=== PATIENT | female | born 1980 | race Caucasian/White ===

== ENCOUNTER 2017-01-26 18:12 | Emergency (ER) | payer MEDICAID, OTHER ==
[~2017-01-26] VITALS: Ht 157.5 cm; Wt 70.0 kg
[~2017-01-26 18:12] MED LIST: EFFEXOR
[2017-01-26 18:15] VITALS: Ht 157.5 cm; Wt 70.0 kg
[2017-01-26] MEDS ORDERED: HYDROCODONE/APAP (5/325) TAB PO ONE (21:00)
[2017-01-26 21:18] LABS: ADD UMIC YES; UR AMORPHOUS CRYSTAL FEW /HPF (NONE SEEN); UR ASCORBIC ACID NEGATIVE (NEGATIVE); UR BILIRUBIN (Dip) NEGATIVE (NEGATIVE); UR BLOOD (Dip) NEGATIVE (NEGATIVE); UR CLARITY CLOUDY (CLEAR); UR COLOR YELLOW (YELLOW); UR GLUCOSE (Dip) NEGATIVE (NEGATIVE); UR KETONES (Dip) NEGATIVE (NEGATIVE); UR LEUKOCYTE ESTERASE (Dip) NEGATIVE Leu/ul (NEGATIVE); UR NITRITE (Dip) NEGATIVE (NEGATIVE); UR RBC 1 /HPF (0-5); UR SPECIFIC GRAVITY (Dip) 1.009 (1.003-1.030); UR TOTAL PROTEIN (Dip) NEGATIVE (NEGATIVE); UR UROBILINOGEN (Dip) 1+ mg/dL (NEGATIVE)
--- NOTE | 2017-01-26 21:22 | RADRPT ---
PROCEDURE: CT cervical spine without contrast CLINICAL INDICATION: Trauma. Neck pain. TECHNIQUE: CT scan of the cervical spine was [facility] No IV contrast was administered. Coronal and sagittal reformatted images were obtained from th e axial source images. Images were reviewed on a high-resolution PACS workstation. One or more the f ollowing does reduction techniques were utilized: Automated exposure control, adjustment of the mA/ or kV according to patient's size, or use of iterative reconstruction technique. Exam CTDI = 16.83 m Gy and the DLP = 314.2 mGy-cm. COMPARISON: None available. FINDINGS: There is straightening of the alignment of the cervical spine with loss of the normal cervical lordo sis. Alignment remains intact. No acute fracture or dislocation is seen. The vertebral body heigh ts and disk spaces are preserved. No significant spinal canal or foraminal stenosis is noted. No ma ss, hematoma, or other soft tissue abnormality is seen. There is 1.5 cm hypodense nodule in the right thyroid lobe. There is 3 mm nodular density in the right lung apex. IMPRESSION: 1. Straightening of normal cervical lordosis. 2. No acute fracture or traumatic subluxation. 3. 1.5 cm hypodense nodule in the right thyroid lobe. Consider correlation with thyroid ultrasound. 4. 3 mm nodular density in the right lung apex. RPTAT: HFN .Johnny Sethi MD, MD Date Time Electronically viewed and signed by .Johnny Sethi MD, MD on 01/26/2017 21:22 .N/
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
--- NOTE | 2017-01-26 22:35 | RADRPT ---
PROCEDURE: Chest. CLINICAL INDICATION: Chest pain. TECHNIQUE: Single frontal view of the chest was obtained. COMPARISON: None. FINDINGS: The cardiac silhouette is within normal limits. The aortic arch is unremarkable. There is no focal consolidation, vascular congestion or pleural effusion. There is no pneumothorax. IMPRESSION: No evidence for active cardiopulmonary disease. .Gopi Colmenares MD, MD Date Time Electronically viewed and signed by .Gopi Colmenares MD, MD on 01/26/2017 22:35 .T/
[2017-01-26] MEDS ORDERED: CYCL-319 PO (22:46)
[2017-01-26] MEDS ORDERED: HYDR-906 PO (22:46)
[2017-01-26] MEDS ORDERED: IBUP-1542 PO (22:46)
[2017-01-26 23:07] VITALS: BP 128/56; PULSE 68; RESP 17; TEMP 98.1
== END 2017-01-26 23:04 | disposition home or self-care (01) ==
LOC: FTE 18:12
DX: S16.1XXA Strain of muscle, fascia and tendon at neck level, initial encounter (principal); S39.012A Strain of muscle, fascia and tendon of lower back, initial encounter; S20.211A Contusion of right front wall of thorax, initial encounter; V49.40XA Driver injured in collision with unspecified motor vehicles in traffic accident, initial encounter
CPT/HCPCS: 71010; 72125; 81001; Z7502; Z7610